=== PATIENT | male | born 1935 | race Caucasian/White ===

== ENCOUNTER 2017-02-12 10:12 | Day surgery (SDCO) | payer MEDICARE ==
[2017-02-12 11:01] LABS: BILIRUBIN NEGATIVE (NEGATIVE); BLOOD NEGATIVE Ery/uL (NEGATIVE); CLARITY CLEAR (CLEAR); COLOR YELLOW (YELLOW); GLUCOSE (U) NORMAL (NORMAL); KETONE (U) NEGATIVE (NEGATIVE); LEUKOCYTES NEGATIVE Leu/uL (NEGATIVE); NITRITE NEGATIVE (NEGATIVE); PROTEIN NEGATIVE (NEGATIVE); UROBILINOGEN 0.2 mg/dL (0.2-1.0); pH 7.5 (5.0-9.0)
[2017-02-12 11:15] LABS: BASOPHIL 0.4 % (0-2); EOSINOPHIL 1.2 % (0-7); HCT 39.3 % (42.0-52.0); HGB 13.6 g/dl (13.2-18.0); LYMPHOCYTE 17.2 % (15-48); MCH 32.5 pg (25.0-31.0); MCHC 34.6 g/dL (32.0-36.0); MCV 93.8 fL (78.0-100.0); MONOCYTE 13.9 % (0-12); MPV 9.8 fL (6.0-9.5); NEUTROPHIL 67.3 % (41-80); PLT 220 K/uL (150-400); RBC 4.19 M/uL (4.70-6.00); RDW 14.7 % (11.5-14.0); WBC 12.4 K/uL (4.0-10.5)
[2017-02-12 11:32] LABS: ALBUMIN 4.2 g/dL (3.4-4.8); BILIRUBIN - TOTAL 1.1 mg/dL (0.1-1.0); GLOBULIN (CALCULATION) 3.3 g/dL (2.2-4.2); POTASSIUM 3.3 mmol/L (3.5-5.1); TOTAL PROTEIN 7.5 g/dL (6.4-8.3)
[2017-02-13 03:20] LABS: BASOPHIL 0.3 % (0-2); EOSINOPHIL 0.9 % (0-7); HCT 38.4 % (42.0-52.0); HGB 13.2 g/dl (13.2-18.0); LYMPHOCYTE 13.4 % (15-48); MCH 32.4 pg (25.0-31.0); MCHC 34.4 g/dL (32.0-36.0); MCV 94.1 fL (78.0-100.0); MONOCYTE 10.5 % (0-12); MPV 9.6 fL (6.0-9.5); NEUTROPHIL 74.9 % (41-80); PLT 220 K/uL (150-400); RBC 4.08 M/uL (4.70-6.00); RDW 14.4 % (11.5-14.0); WBC 12.4 K/uL (4.0-10.5)
[2017-02-13 03:40] LABS: CKMB < 1.00 ng/mL (0.97-4.94); MYOGLOBIN 169 ng/mL (26-65); PRO-BNP 2873 pg/mL (0-450); TROPONIN T < 0.010 ng/mL
[2017-02-13 03:41] LABS: CREATININE 1.4 mg/dL (0.7-1.2); POTASSIUM 3.3 mmol/L (3.5-5.1)
== END 2017-02-13 18:05 | disposition home health service (06) ==
LOC: FER 10:12 → FMS 16:00
PROVIDERS: Emergency Medicine; Hospitalist; ADMIT Internal Medicine
DX: S82.001A Unspecified fracture of right patella, initial encounter for closed fracture (principal); M25.461 Effusion, right knee; I48.0 Paroxysmal atrial fibrillation; C61 Malignant neoplasm of prostate; J44.9 Chronic obstructive pulmonary disease, unspecified; J96.90 Respiratory failure, unspecified, unspecified whether with hypoxia or hypercapnia; I10 Essential (primary) hypertension; E87.6 Hypokalemia; Z82.49 Family history of ischemic heart disease and other diseases of the circulatory system; Z82.3 Family history of stroke; Z80.9 Family history of malignant neoplasm, unspecified; Z79.52 Long term (current) use of systemic steroids; Z79.899 Other long term (current) drug therapy
CPT/HCPCS: 36415; 70450; 71010; 73560; 73564; 80048; 80053; 80162; 81003; 82550; 82553; 83874; 83880; 84484; 85025; 87088; 93005; 97163; 97167; 97530-GP; G0378

== ENCOUNTER 2017-02-14 14:22 | Inpatient (IN) | payer MEDICARE ==
[2017-02-14 16:18] LABS: BASOPHIL 0.3 % (0-2); EOSINOPHIL 1.1 % (0-7); HCT 42.8 % (42.0-52.0); HGB 14.4 g/dl (13.2-18.0); LYMPHOCYTE 14.2 % (15-48); MCH 31.8 pg (25.0-31.0); MCHC 33.6 g/dL (32.0-36.0); MCV 94.5 fL (78.0-100.0); MONOCYTE 11.5 % (0-12); MPV 10.1 fL (6.0-9.5); NEUTROPHIL 72.9 % (41-80); PLT 256 K/uL (150-400); RBC 4.53 M/uL (4.70-6.00); RDW 14.3 % (11.5-14.0); WBC 14.7 K/uL (4.0-10.5)
[2017-02-14 16:34] LABS: ALBUMIN 4.6 g/dL (3.4-4.8); BILIRUBIN - TOTAL 1.2 mg/dL (0.1-1.0); GLOBULIN (CALCULATION) 3.6 g/dL (2.2-4.2); POTASSIUM 3.3 mmol/L (3.5-5.1); TOTAL PROTEIN 8.2 g/dL (6.4-8.3)
[2017-02-14 17:37] LABS: BILIRUBIN NEGATIVE (NEGATIVE); BLOOD 3+ Ery/uL (NEGATIVE); CLARITY CLEAR (CLEAR); COLOR YELLOW (YELLOW); GLUCOSE (U) NORMAL (NORMAL); KETONE (U) NEGATIVE (NEGATIVE); LEUKOCYTES NEGATIVE Leu/uL (NEGATIVE); NITRITE NEGATIVE (NEGATIVE); PROTEIN 2+ mg/dL (NEGATIVE); SPECIFIC GRAVITY 1.025 (1.001-1.030); UROBILINOGEN 0.2 mg/dL (0.2-1.0)
[2017-02-14 17:58] LABS: URINARY RBC 20-50
[2017-02-14 17:59] LABS: SQUAMOUS EPITHELIAL CELLS RARE
[2017-02-15 04:32] LABS: BASOPHIL 0.2 % (0-2); EOSINOPHIL 0.8 % (0-7); HCT 37.8 % (42.0-52.0); HGB 12.8 g/dl (13.2-18.0); LYMPHOCYTE 12.8 % (15-48); MCH 32.4 pg (25.0-31.0); MCHC 33.9 g/dL (32.0-36.0); MCV 95.7 fL (78.0-100.0); MONOCYTE 13.1 % (0-12); MPV 10.2 fL (6.0-9.5); NEUTROPHIL 73.1 % (41-80); PLT 250 K/uL (150-400); RBC 3.95 M/uL (4.70-6.00); RDW 14.1 % (11.5-14.0); WBC 12.3 K/uL (4.0-10.5)
[2017-02-15 04:38] LABS: CREATININE 0.9 mg/dL (0.7-1.2); POTASSIUM 3.6 mmol/L (3.5-5.1)
[2017-02-16 07:09] LABS: HCT 37.2 % (42.0-52.0); HGB 12.6 g/dl (13.2-18.0); MCH 32.1 pg (25.0-31.0); MCHC 33.9 g/dL (32.0-36.0); MCV 94.9 fL (78.0-100.0); MPV 9.5 fL (6.0-9.5); RBC 3.92 M/uL (4.70-6.00); RDW 13.8 % (11.5-14.0)
[2017-02-16 07:48] LABS: CREATININE 1.1 mg/dL (0.7-1.2); POTASSIUM 3.8 mmol/L (3.5-5.1)
[2017-02-17 04:43] LABS: BASOPHIL 0.2 % (0-2); EOSINOPHIL 4.3 % (0-7); HCT 38.4 % (42.0-52.0); LYMPHOCYTE 12.8 % (15-48); MCH 31.9 pg (25.0-31.0); MCHC 33.9 g/dL (32.0-36.0); MCV 94.1 fL (78.0-100.0); MONOCYTE 9.2 % (0-12); MPV 9.8 fL (6.0-9.5); NEUTROPHIL 73.5 % (41-80); PLT 278 K/uL (150-400); RBC 4.08 M/uL (4.70-6.00); RDW 13.8 % (11.5-14.0); WBC 11.5 K/uL (4.0-10.5)
[2017-02-17 11:34] LABS: BILIRUBIN NEGATIVE (NEGATIVE); BLOOD 2+ Ery/uL (NEGATIVE); CLARITY CLEAR (CLEAR); COLOR YELLOW (YELLOW); GLUCOSE (U) NORMAL (NORMAL); KETONE (U) NEGATIVE (NEGATIVE); LEUKOCYTES NEGATIVE Leu/uL (NEGATIVE); NITRITE NEGATIVE (NEGATIVE); PROTEIN NEGATIVE (NEGATIVE); SPECIFIC GRAVITY <=1.005 (1.001-1.030); UROBILINOGEN 0.2 mg/dL (0.2-1.0)
[2017-02-17 11:50] LABS: BACTERIA 1+; MUCOUS TRACE
[2017-02-18 05:22] LABS: BASOPHIL 0.3 % (0-2); EOSINOPHIL 6.4 % (0-7); HCT 37.1 % (42.0-52.0); HGB 12.6 g/dl (13.2-18.0); LYMPHOCYTE 18.1 % (15-48); MCH 32.1 pg (25.0-31.0); MCV 94.4 fL (78.0-100.0); MONOCYTE 9.7 % (0-12); MPV 9.7 fL (6.0-9.5); NEUTROPHIL 65.5 % (41-80); PLT 288 K/uL (150-400); RBC 3.93 M/uL (4.70-6.00); RDW 13.5 % (11.5-14.0); WBC 10.6 K/uL (4.0-10.5)
[2017-02-18 05:36] LABS: MAGNESIUM 2.28 mg/dL (1.40-2.10); POTASSIUM 4.4 mmol/L (3.5-5.1)
[2017-02-19 04:31] LABS: HCT 36.5 % (42.0-52.0); HGB 12.3 g/dl (13.2-18.0); MCH 31.6 pg (25.0-31.0); MCHC 33.7 g/dL (32.0-36.0); MCV 93.8 fL (78.0-100.0); MPV 9.8 fL (6.0-9.5); RBC 3.89 M/uL (4.70-6.00); RDW 13.5 % (11.5-14.0); WBC 10.3 K/uL (4.0-10.5)
[2017-02-19 04:51] LABS: CREATININE 1.1 mg/dL (0.7-1.2); POTASSIUM 3.6 mmol/L (3.5-5.1)
== END 2017-02-19 17:50 | DRG 872 ==
LOC: FER 14:22 → FTCU 18:30
PROVIDERS: Emergency Medicine; Internal Medicine Nephrology; Nurse Practitioner; ADMIT Internal Medicine
PROC: 0S9D3ZX Drainage of Left Knee Joint, Percutaneous Approach, Diagnostic (ICD-10-PCS; principal; 2017-02-15)
DX: A41.9 Sepsis, unspecified organism (principal); J96.10 Chronic respiratory failure, unspecified whether with hypoxia or hypercapnia; I48.0 Paroxysmal atrial fibrillation; Z99.81 Dependence on supplemental oxygen; C61 Malignant neoplasm of prostate; M25.061 Hemarthrosis, right knee; R55 Syncope and collapse; I10 Essential (primary) hypertension; N41.0 Acute prostatitis; E87.6 Hypokalemia; J44.9 Chronic obstructive pulmonary disease, unspecified; S82.001D Unspecified fracture of right patella, subsequent encounter for closed fracture with routine healing; W19.XXXD Unspecified fall, subsequent encounter; R53.1 Weakness; M25.562 Pain in left knee; M25.561 Pain in right knee; Z91.81 History of falling; Z82.49 Family history of ischemic heart disease and other diseases of the circulatory system; Z79.01 Long term (current) use of anticoagulants; Z82.3 Family history of stroke; Z80.9 Family history of malignant neoplasm, unspecified
CPT/HCPCS: 36415; 71010; 73564; 80048; 80053; 80162; 81001; 83735; 84484; 85025; 87088; 93005; 94010; 94640; 97110; 97116; 97163; 97167; 97530; 97530-GP; 97535; J1956; J3301

== ENCOUNTER 2017-02-19 16:00 | Inpatient (IN) | payer MEDICARE ==
--- NOTE | 2017-02-23 10:13 | NUR ---
PT. TO D/C HOME THIS DATE WITH SPOUSE. PT.AND FAMILY HAVE REQUESTED HOSPICE PT. HAS PROSTATE CANCER WITH METS. PT. HAS A ROLLING WALKER. FAMILY HAS ALREADY MET WITH HEATHER FOR THE HOSPICE CONSULT. D/C NOTICE AND QUESTIONNAIRE GIVEN.
--- NOTE | 2017-02-23 11:53 | NUR ---
DISCHARGE INSTRUCTIONS GIVEN TO PATIENT AND , VOICED COMPLETE UNDERSTANDING. TO HOME PER PRIVATE VEHICLE, CONDITION STABLE. HOSPICE TO SEE SATURDAY.
== END 2017-02-23 11:59 | disposition hospice, home (50) | DRG 947 ==
LOC: FSNU 16:00
PROVIDERS: ADMIT Internal Medicine Nephrology
DX: R53.1 Weakness (principal); A41.9 Sepsis, unspecified organism; J96.10 Chronic respiratory failure, unspecified whether with hypoxia or hypercapnia; Z99.81 Dependence on supplemental oxygen; N41.0 Acute prostatitis; I48.0 Paroxysmal atrial fibrillation; C61 Malignant neoplasm of prostate; Z91.81 History of falling; S82.001D Unspecified fracture of right patella, subsequent encounter for closed fracture with routine healing; Z79.01 Long term (current) use of anticoagulants; I10 Essential (primary) hypertension; J44.9 Chronic obstructive pulmonary disease, unspecified
CPT/HCPCS: 97110; 97116; 97162; 97166; 97530-GP; 97535; J1956